=== PATIENT | female | born 1960 | race Caucasian/White ===

== ENCOUNTER 2018-10-29 07:20 | Emergency (ER) | payer BC, OTHER ==
[2018-10-29] MEDS: NITROGLYCERIN 0.4 MG SUBL TABLET SL ×2 (08:15→08:26)
[2018-10-29] MEDS: ASPIRIN 81 MG CHEW TABLET PO (08:15)
[2018-10-29 08:26] LABS: BASO # 0.1 10^3/uL (0.0-0.2); BASO % 0.5 % (0.0-1.0); EOS # 0.3 10^3/uL (0.0-0.50); EOS % 3.4 % (0.0-3.0); HEMATOCRIT 35.3 % (36.0-47.0); HEMOGLOBIN 11.6 g/dl (12.0-15.5); IMMATURE GRANULOCYTE % 0.5 % (0-3.0); LYMPH # 2.2 10^3/uL (1.5-4.5); LYMPH % 23.5 % (24.0-44.0); MEAN CORPUSCULAR HEMOGLOBIN 28.2 pg (27.0-33.0); MEAN CORPUSCULAR HGB CONC 32.9 g/dl (32.0-36.5); MEAN CORPUSCULAR VOLUME 85.9 fl (80.0-96.0); MONO # 0.8 10^3/uL (0.0-0.8); MONO % 8.7 % (0.0-5.0); NEUTROPHILS % 63.4 % (36.0-66.0); PLATELET COUNT, AUTOMATED 251 10^3/uL (150-450); RED BLOOD COUNT 4.11 10^6/uL (4.00-5.40); RED CELL DISTRIBUTION WIDTH 13.8 % (11.5-14.5); WHITE BLOOD COUNT 9.5 10^3/uL (4.0-10.0)
[2018-10-29] MEDS ORDERED: NITROGLYCERIN 0.4 MG SUBL TABLET SL (08:30)
[2018-10-29 08:46] LABS: ANION GAP 10 MEQ/L (8-16); BLOOD UREA NITROGEN 11 MG/DL (7-18); CALCIUM LEVEL 8.8 MG/DL (8.5-10.1); CARBON DIOXIDE LEVEL 26 MEQ/L (21-32); CHLORIDE LEVEL 105 MEQ/L (98-107); CK-MB VALUE MASS < 1.0 NG/ML (<3.6); CPK CREATINE PHOSPHOKINASE 43 U/L (26-192); CREATININE FOR GFR 0.77 MG/DL (0.55-1.30); GLOMERULAR FILTRATION RATE > 60.0 (>51); GLUCOSE, FASTING 124 MG/DL (70-100); MB/CK RELATIVE INDEX 2.33 (< OR =4); NT-PRO BNP 103 PG/ML (<125); POTASSIUM SERUM 3.9 MEQ/L (3.5-5.1); SODIUM LEVEL 141 MEQ/L (136-145); TROPONIN I < 0.02 NG/ML (< 0.10)
[2018-10-29] MEDS ORDERED: ISOVUE-370 76% 100ML VIAL (Q9967) As Ordered (09:55)
[2018-10-29 14:08] LABS: CK-MB VALUE MASS < 1.0 NG/ML (<3.6); CPK CREATINE PHOSPHOKINASE 35 U/L (26-192); MB/CK RELATIVE INDEX 2.86 (< OR =4); TROPONIN I < 0.02 NG/ML (< 0.10)
== END 2018-10-29 14:30 | disposition home or self-care (01) ==
LOC: M ED 07:20
DX: R07.9 Chest pain, unspecified (principal); Z73.3 Stress, not elsewhere classified; I11.0 Hypertensive heart disease with heart failure; I50.9 Heart failure, unspecified; E11.9 Type 2 diabetes mellitus without complications; E78.5 Hyperlipidemia, unspecified; I25.10 Atherosclerotic heart disease of native coronary artery without angina pectoris; I25.2 Old myocardial infarction; K21.9 Gastro-esophageal reflux disease without esophagitis; Z82.49 Family history of ischemic heart disease and other diseases of the circulatory system; Z79.899 Other long term (current) drug therapy; Z79.84 Long term (current) use of oral hypoglycemic drugs; Z79.82 Long term (current) use of aspirin; Z79.02 Long term (current) use of antithrombotics/antiplatelets; F17.210 Nicotine dependence, cigarettes, uncomplicated
CPT/HCPCS: Q9967

== ENCOUNTER → 2019-11-01 | Outpatient (CLI) | payer BC, OTHER ==
[~2019-11-01] MED LIST: ALBU17IN2 INH; AMLO5CAP34 PO; CLAR10CA3 PO; CRES10TA PO; ECOT325T5; IBUP-1022 PO; INCR1INH INH; JANU100T14 PO; LORA-243 PO; LORT5TAB PO; NITR0.4S; PANT40TA3 PO; PLAV75TA2; SOTA80TA2 PO; TENO25TA; VARE1TA; VYTO10TA5; ZANT150T
--- NOTE | 2019-11-01 11:13 | REP ---
Clinical: Contusion. Technique: AP and lateral views of the right tibia / fibula. Findings: Age-related degenerative changes at the knee. No acute fracture dislocation. No subcutaneous emphysema or radiodense foreign body. Impression: No acute injury appreciated. Electronically Signed by Hayes Kaplan MD 11/01/2019 11:04 A
== END ==
LOC: M WUC 10:29
PROVIDERS: ATTEND Physician Assistant
DX: S80.11XA Contusion of right lower leg, initial encounter (principal); L03.115 Cellulitis of right lower limb; X58.XXXA Exposure to other specified factors, initial encounter; Y92.9 Unspecified place or not applicable; M17.11 Unilateral primary osteoarthritis, right knee

== ENCOUNTER 2020-02-21 10:52 | Emergency (ER) | payer BC, OTHER ==
[~2020-02-21] VITALS: Ht 165.1 cm; Wt 102.9 kg
[2020-02-21] MEDS ORDERED: [UNRECOGNIZED DRUG - CODE] PO (11:21)
[2020-02-21] MEDS ORDERED: VASC1CAP2 PO (11:21)
[2020-02-21] MEDS ORDERED: ASPIRIN 81 MG CHEW TABLET PO ONE (11:30)
[2020-02-21 11:52] LABS: BASO # 0.1 10^3/uL (0.0-0.2); BASO % 0.6 % (0.0-1.0); EOS # 0.2 10^3/uL (0.0-0.5); EOS % 2.3 % (0.0-3.0); HEMATOCRIT 38.9 % (36.0-47.0); HEMOGLOBIN 12.4 g/dl (12.0-15.5); LYMPH # 3.1 10^3/uL (1.5-5.0); LYMPH % 31.1 % (24.0-44.0); MEAN CORPUSCULAR HEMOGLOBIN 26.8 pg (27.0-33.0); MEAN CORPUSCULAR HGB CONC 31.9 g/dl (32.0-36.5); MONO # 0.7 10^3/uL (0.0-0.8); NEUTROPHILS # 5.9 10^3/uL (1.5-8.5); NEUTROPHILS % 58.4 % (36.0-66.0); PLATELET COUNT, AUTOMATED 264 10^3/uL (150-450); RED BLOOD COUNT 4.63 10^6/uL (4.00-5.40); WHITE BLOOD COUNT 10.1 10^3/uL (4.0-10.0)
[2020-02-21 12:27] LABS: ALBUMIN 3.7 GM/DL (3.2-5.2); ALT/SGPT 31 U/L (12-78); BILIRUBIN,DIRECT < 0.1 MG/DL (0.0-0.2); BILIRUBIN,TOTAL 0.5 MG/DL (0.2-1.0); BLOOD UREA NITROGEN 14 MG/DL (7-18); CALCIUM LEVEL 9.2 MG/DL (8.8-10.2); CARBON DIOXIDE LEVEL 28 MEQ/L (21-32); CHLORIDE LEVEL 103 MEQ/L (98-107); CK-MB VALUE MASS < 1.0 NG/ML (<3.6); CPK CREATINE PHOSPHOKINASE 74 U/L (26-192); CREATININE FOR GFR 0.77 MG/DL (0.55-1.30); GLOMERULAR FILTRATION RATE > 60.0 (>45); GLUCOSE, FASTING 118 MG/DL (70-100); LIPASE 66 U/L (73-393); MB/CK RELATIVE INDEX 1.35 (< OR =4); POTASSIUM SERUM 4.6 MEQ/L (3.5-5.1); SODIUM LEVEL 136 MEQ/L (136-145); TOTAL PROTEIN 7.2 GM/DL (6.4-8.2); TROPONIN I < 0.02 NG/ML (< 0.10)
--- NOTE | 2020-02-21 12:59 | REP ---
CHEST, SINGLE VIEW: There is no evidence of acute infiltrate. No pleural effusion is seen. The heart is normal in size. The mediastinal silhouette is unremarkable. The visualized osseous structures are intact. Left pacemaker is again noted. IMPRESSION: No acute pulmonary disease. Electronically Signed by Paolo Gutierrez MD 02/21/2020 03:52 P
--- NOTE | 2020-02-21 13:19 | REP ---
However quadrant sonography: History: Right upper quadrant pain. Findings: Scanning through right upper quadrant of the abdomen demonstrates normal sized thin-walled gallbladder without evidence of stone or polyp. Common bile duct is at the upper range of normal measuring 0.65 cm in diameter. There is increased echogenicity in the liver diffusely consistent with fatty infiltration of the liver. No focal liver mass lesion is seen. There are areas of fat sparing adjacent the gallbladder. No pancreatic abnormality is observed. There is no evidence of ascites. No right renal abnormality is seen to the right kidney measures 11.1 x 4.7 x 4.2 cm. Impression: Fatty infiltration of the liver changes. CBD at the upper range of normal 0.65 cm. Otherwise negative. Electronically Signed by Alfonso Bray MD 02/21/2020 01:11 P
[2020-02-21 14:22] VITALS: BP 124/71
[2020-02-21 14:29] LABS: CK-MB VALUE MASS < 1.0 NG/ML (<3.6); CPK CREATINE PHOSPHOKINASE 40 U/L (26-192); TROPONIN I < 0.02 NG/ML (< 0.10)
--- NOTE | 2020-02-22 08:42 | ECGEPIP ---
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
--- NOTE | 2020-02-22 08:43 | ECGEPIP ---
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
--- NOTE | 2020-02-24 07:43 | ED PDOC ---
Post-Departure Follow-Up us faxed to dr madrid for fu Zoey Thacker MD Feb 24, 2020 07:43
== END 2020-02-21 14:50 | disposition home or self-care (01) ==
LOC: M ED 10:52
DX: R07.89 Other chest pain (principal); I25.10 Atherosclerotic heart disease of native coronary artery without angina pectoris; I25.2 Old myocardial infarction; E11.9 Type 2 diabetes mellitus without complications; I10 Essential (primary) hypertension; E78.5 Hyperlipidemia, unspecified; K21.9 Gastro-esophageal reflux disease without esophagitis; K76.0 Fatty (change of) liver, not elsewhere classified; Z79.82 Long term (current) use of aspirin; Z79.899 Other long term (current) drug therapy

== ENCOUNTER 2021-01-31 09:52 | Emergency (ER) | payer BC, OTHER ==
[~2021-01-31] VITALS: Ht 165.1 cm; Wt 104.8 kg
[~2021-01-31 09:52] MED LIST changes: +PANT40TA29 PO; -PANT40TA3 PO; -VARE1TA; +VARE1TA PO; +VASC1CAP2 PO; +[UNRECOGNIZED DRUG - CODE] PO
[2021-01-31] MEDS ORDERED: NITROGLYCERIN 0.4 MG SUBL TABLET SL PRN (10:05)
[2021-01-31 10:26] VITALS: BP 179/96
[2021-01-31 10:34] LABS: BASO # 0.1 10^3/uL (0.0-0.2); BASO % 0.7 % (0.0-1.0); EOS # 0.3 10^3/uL (0.0-0.5); EOS % 2.9 % (0.0-3.0); HEMATOCRIT 38.6 % (36.0-47.0); HEMOGLOBIN 12.2 g/dl (12.0-15.5); LYMPH # 2.4 10^3/uL (1.5-5.0); LYMPH % 25.3 % (24.0-44.0); MEAN CORPUSCULAR HEMOGLOBIN 25.8 pg (27.0-33.0); MEAN CORPUSCULAR HGB CONC 31.6 g/dl (32.0-36.5); MEAN CORPUSCULAR VOLUME 81.8 fl (80.0-96.0); MONO # 0.7 10^3/uL (0.0-0.8); MONO % 7.2 % (2.0-8.0); NEUTROPHILS % 63.5 % (36.0-66.0); PLATELET COUNT, AUTOMATED 229 10^3/uL (150-450); RED BLOOD COUNT 4.72 10^6/uL (4.00-5.40); WHITE BLOOD COUNT 9.5 10^3/uL (4.0-10.0)
[2021-01-31] MEDS ORDERED: ATIV1TAB7 PO (10:34)
--- NOTE | 2021-01-31 10:36 | REP ---
INDICATION: CHEST PAIN COMPARISON: 02/21/2020 TECHNIQUE: Portable AP view of the chest FINDINGS: The mediastinum and cardiac silhouette are stable and within normal limits for portable technique. Pacemaker in stable position. No focal consolidation, effusion, or pneumothorax appreciated. However, very subtle left basilar atelectasis cannot be excluded and should be correlated with auscultation. Skeletal structures are intact. IMPRESSION: As above. No focal consolidation or effusion. <Electronically signed by Hayes Kaplan > 01/31/21 1030
[2021-01-31 10:49] LABS: INR 0.84; PROTHROMBIN TIME 11.7 SECONDS (12.5-14.3)
[2021-01-31 10:50] LABS: PARTIAL THROMBOPLASTIN TIME 28.6 SECONDS (24.2-38.5)
[2021-01-31 11:05] LABS: ALBUMIN 3.6 GM/DL (3.2-5.2); ALT/SGPT 24 U/L (12-78); BILIRUBIN,DIRECT < 0.1 MG/DL (0.0-0.2); BILIRUBIN,TOTAL 0.2 MG/DL (0.2-1.0); FREE T4 0.89 NG/DL (0.76-1.46); LIPASE 121 U/L (73-393); NT-PRO BNP 199 PG/ML (<125); TOTAL PROTEIN 7.1 GM/DL (6.4-8.2)
[2021-01-31] MEDS ORDERED: ISOVUE-370 76% 100ML VIAL As Ordered ONE (11:11)
--- NOTE | 2021-01-31 11:47 | REP ---
INDICATION: chest pain COMPARISON: 10/29/2018 TECHNIQUE: Axial contrast enhanced images from the thoracic inlet to the upper abdomen using pulmonary embolus technique with multiplanar re-formations. 75 ml Isovue 370 intravenous contrast material administered without complication. This CT examination was performed using the following dose reduction techniques: Automated exposure control, adjustment of mA and/or kv according to the patient's size, and use of iterative reconstruction technique. FINDINGS: Satisfactory enhancement of the pulmonary vasculature is achieved and no filling defects are identified to suggest pulmonary embolus. Thoracic aorta without aneurysm or dissection. No cardiomegaly or pericardial effusion. Pacemaker in satisfactory position. The bilateral lung kern are well aerated and clear without consolidation pleural effusion or pneumothorax. Tracheobronchial tree is patent. No nodule or mass lesion is identified. No adenopathy noted. Surrounding musculoskeletal structures intact IMPRESSION: No evidence for pulmonary embolus. No acute mediastinal or pleural parenchymal process. <Electronically signed by Hayes Kaplan > 01/31/21 1149
[2021-01-31 15:25] VITALS: BP 145/70
--- NOTE | 2021-01-31 17:16 | ECGEPIP ---
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
--- NOTE | 2021-01-31 19:40 | ECGEPIP ---
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
--- NOTE | 2021-01-31 19:43 | ECGEPIP ---
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
== END 2021-01-31 15:30 | disposition home or self-care (01) ==
LOC: M ED 09:52
DX: R07.9 Chest pain, unspecified (principal); I25.10 Atherosclerotic heart disease of native coronary artery without angina pectoris; I25.2 Old myocardial infarction; E11.9 Type 2 diabetes mellitus without complications; I10 Essential (primary) hypertension; E78.5 Hyperlipidemia, unspecified; K21.9 Gastro-esophageal reflux disease without esophagitis; Z87.01 Personal history of pneumonia (recurrent); Z95.5 Presence of coronary angioplasty implant and graft; Z79.82 Long term (current) use of aspirin; Z79.899 Other long term (current) drug therapy; Z79.84 Long term (current) use of oral hypoglycemic drugs
CPT/HCPCS: 71045; 71275; 80047; 80076; 83690; 83880; 84439; 84443; 84484; 85025; 85610; 85730; 93005; 93041; 94760; 99285; Q9967

== ENCOUNTER 2021-11-27 11:32 | Emergency (ER) | payer BC, OTHER ==
[~2021-11-27] VITALS: Ht 165.1 cm; Wt 93.3 kg
[~2021-11-27 11:32] MED LIST changes: +ATIV1TAB7 PO
--- NOTE | 2021-11-27 12:54 | REP ---
INDICATION: SOB/cough COMPARISON: 01/31/2021 TECHNIQUE: PA and lateral. FINDINGS: The mediastinum and cardiac silhouette are normal. The lung kern are clear and without acute consolidation, effusion, or pneumothorax. The skeletal structures are intact and normal. IMPRESSION: No acute cardiopulmonary process. <Electronically signed by Hayes Kaplan > 11/27/21 [id number]
[2021-11-27] MEDS ORDERED: predniSONE 20 MG TAB PO ONE (13:55)
[2021-11-27] MEDS ORDERED: PRED10TA2 PO (14:11)
[2021-11-27 14:40] VITALS: BP 157/62
== END 2021-11-27 14:44 | disposition home or self-care (01) ==
LOC: M ED 11:32
DX: J20.9 Acute bronchitis, unspecified (principal); I11.0 Hypertensive heart disease with heart failure; I25.2 Old myocardial infarction; E11.9 Type 2 diabetes mellitus without complications; E78.5 Hyperlipidemia, unspecified; K21.9 Gastro-esophageal reflux disease without esophagitis; F17.200 Nicotine dependence, unspecified, uncomplicated; Z79.82 Long term (current) use of aspirin; Z79.899 Other long term (current) drug therapy
CPT/HCPCS: 71046; 87798; 99283; J7512

== ENCOUNTER → 2022-10-05 | Outpatient (CLI) | payer BC, OTHER ==
[~2022-10-05] MED LIST changes: +PRED10TA2 PO
== END ==
LOC: M PLAIMG 13:14
PROVIDERS: ATTEND Nurse Practitioner Adult Health
DX: M25.551 Pain in right hip (principal); M54.50 Low back pain, unspecified; M16.11 Unilateral primary osteoarthritis, right hip; M47.816 Spondylosis without myelopathy or radiculopathy, lumbar region

== ENCOUNTER → 2023-12-08 | Outpatient (CLI) | payer BC, OTHER | LOC: M PLAIMG 09:33 | PROVIDERS: ATTEND Nurse Practitioner Adult Health | DX: N20.0 Calculus of kidney (principal); R31.9 Hematuria, unspecified ==

== ENCOUNTER → 2024-01-22 | Outpatient (REF) | payer BC, OTHER ==
[2024-01-22 18:23] LABS: ATYPICAL LYMPH 1 % (0-5); EOSINOPHILS 1 % (0-3); LYMPHOCYTES 16 % (16-44); MONOCYTES 2 % (0-5); NEUTROPHILS 80 % (28-66); PLATELET ESTIMATE NORMAL (NORMAL)
[2024-01-22 18:24] LABS: MICROCYTOSIS 1+
== END ==
LOC: M LAB REF 16:21
PROVIDERS: ATTEND Nurse Practitioner Adult Health
DX: D72.829 Elevated white blood cell count, unspecified (principal); J12.9 Viral pneumonia, unspecified

== ENCOUNTER → 2024-06-17 | Outpatient (REF) | payer MEDICARE, BC, OTHER ==
[2024-06-18 14:20] LABS: PERCENT SATURATION 15.8 % (13.2-45.0)
[2024-06-18 14:24] LABS: FERRITIN 39.6 NG/ML (7.3-270.7)
== END ==
LOC: M LAB REF 12:58
PROVIDERS: ATTEND Nurse Practitioner Adult Health
DX: D64.9 Anemia, unspecified (principal)

== ENCOUNTER 2025-01-09 10:57 | Day surgery (SDC) | payer MEDICARE, BC ==
[~2025-01-09] VITALS: Ht 165.1 cm; Wt 86.2 kg
[~2025-01-09 10:57] MED LIST changes: +AMLO2.5C6 PO; +ASPI81CH33 PO; +CLOP75TA2 PO; +LIDOCAINE 2% 100MG/5ML SDV (FOR ANES.) As Ordered ONE; +METF10004 PO; +ROSU20TA86 PO; +SEMA1PEN2 SQ; +SOTA80TA32 PO; +TREL1AER INH; +VENTAER INH; +propofoL 200 MG/20 ML VIAL As Ordered ONE
[2025-01-09] MEDS ORDERED: SIMETHICONE 40MG/0.6ML DROPS 30ML As Ordered ONE (12:39)
[2025-01-09 13:03] VITALS: TEMP 97.6
[2025-01-09 13:26] VITALS: BP 138/69; O2SAT 97
== END 2025-01-09 13:28 | disposition home or self-care (01) ==
LOC: M OPP 10:57
PROVIDERS: ATTEND Surgery
DX: Z12.11 Encounter for screening for malignant neoplasm of colon (principal); R19.5 Other fecal abnormalities; K57.30 Diverticulosis of large intestine without perforation or abscess without bleeding; K44.9 Diaphragmatic hernia without obstruction or gangrene; K31.89 Other diseases of stomach and duodenum; K30 Functional dyspepsia; I25.10 Atherosclerotic heart disease of native coronary artery without angina pectoris; Z79.82 Long term (current) use of aspirin; Z79.84 Long term (current) use of oral hypoglycemic drugs; Z79.85 Long-term (current) use of injectable non-insulin antidiabetic drugs; Z79.51 Long term (current) use of inhaled steroids; Z79.899 Other long term (current) drug therapy; Z95.810 Presence of automatic (implantable) cardiac defibrillator; J44.9 Chronic obstructive pulmonary disease, unspecified; F17.210 Nicotine dependence, cigarettes, uncomplicated